=== PATIENT | female | born 1950 | race Caucasian/White ===

== ENCOUNTER → 2018-01-09 | Outpatient (CLI) | payer MEDICARE ==
[~2018-01-09] MED LIST: AMLODIPINE BESYL5 MG PO; CENTRUM SILVER1 EAC3 PO; FIBER PO; FIBER TABS625 MG PO; FISH OIL PO; LOSARTAN-HCTZ1 EACH; MILK THISTLE500 MG PO; OMEPRAZOLE20 MG PO; TRIBENZOR 20-51 EACH PO; Z.3.CENTRUM SILVER1 PO; [UNRECOGNIZED DRUG - OTHER] PO; [UNRECOGNIZED DRUG - OTHER] PO
--- NOTE | 2018-01-16 08:35 | Diagnostic Imaging Report ---
#[id number] - MGSCRBIL #BILATERAL DIGITAL SCREENING MAMMOGRAM WITH CAD: 01/09/2018 CLINICAL: Routine screening. Comparison is made to exams dated: 12/31/2014 mammogram and 01/07/2014 mammogram - [facility]. Current study contains 4 films. There are scattered fibroglandular elements in both breasts. Current study was also evaluated with a Computer Aided Detection (CAD) system. There is a benign calcification in the right breast. There is a mole marker on the left breast. No significant masses, calcifications, or other findings are seen in either breast. There has been no significant interval change. IMPRESSION: BENIGN There is no mammographic evidence of malignancy. A 1 year screening mammogram is recommended. The patient will be notified by letter of the results. Julien boyle/marline:01/13/2018 12:14:09 [employer] Administrator: Marybeth TORRES)([place]), [facility] letter sent: Compared to Prior B9 Mammogram BI-RADS: 2 Benign
== END ==
LOC: MAMMO 12:59
PROVIDERS: ATTEND Family Medicine
DX: Z12.31 Encounter for screening mammogram for malignant neoplasm of breast (principal)
CPT/HCPCS: 77067

== ENCOUNTER → 2018-01-13 | Outpatient (CLI) | payer MEDICARE ==
--- NOTE | 2018-01-13 10:04 | Diagnostic Imaging Report ---
PROCEDURE: BONE DXA DUAL ENERGY COMPARISON:None. INDICATIONS:OSTEOPORSIS FINDINGS:Evaluation of the left hip and lumbar spine was performed utilizing DEXA Hologic bone densitometer. The study is technically adequate. The patient does not have any known previous non-traumatic fractures or other risk factors. Left hip total bone mineral density: 0.808 gm/cm2, T-score is -1.1, Z-score is 0.30. Lumbar spine total bone mineral density: 0.847 gm/cm2, T-score is -1.8, Z-score is a 0.1. Impression: 1. Decreased bone mineral density of the left hip classified as osteopenia, fracture risk is increased. 2. Decreased bone mineral density of the lumbar spine classified as osteopenia, fracture risk is increased. 3. Ten-year fracture risk of the major osteoporotic fracture is 8.7%. 4. Ten-year fracture risk of a hip fracture is 0.8%. 5. Since the previous study dated 12/31/2014 there is a decrease in the bone mineral density of -0.7%. The patient's fracture risk is compared to an age-matched control. Medical evaluation for secondary causes of low bone mineral density may be appropriate. Correlate clinically for the necessity and timing of the next bone mineral density study. National Osteoporosis Foundation recommendations: Initial therapy to reduce fracture risk in postmenopausal women with -BMD t-scores below -2.0 by central DXA with no risk factors -BMD t-scores below -1.5 by central CXA with one or more risk factors (first deg relative with hip fracture, prior personal fracture, low body weight, smoking) -A prior vertebral or hip fracture AACE n(Clinical Endocrinology) recommends treating the following: Postmenopausal women who have osteoporosis as diagnosed by fragility fractures or t-score -2.5 or below. Postmenopausal women who have risk factors (including hx of hip fracture, low body weight, smoking, risk of falling, high bone turnover, advancing age) and borderline low BMD T-scores of -1.5 or below Adequate intake of calcium (at least 1200mg/day) and vitamin D (400-800IU/day). Regular weight bearing and muscle-strengthening exercises Avoid smoking and excessive alcohol Julien Bailey D.O. Dictated by: Julien Bailey D.O. on 01/13/2018 at 10:13 Electronically approved by: Julien Bailey D.O. on 01/13/2018 at 10:13
== END ==
LOC: DX 08:58
PROVIDERS: ATTEND Family Medicine
DX: M81.0 Age-related osteoporosis without current pathological fracture (principal)
CPT/HCPCS: 77080

== ENCOUNTER → 2018-01-24 | Day surgery (SDC) | payer MEDICARE ==
[2018-01-23 12:31] LABS: BASOPHILS % 0.6 % (0.0-1.0); EOSINOPHILS # (AUTO) 0.1 (0.0-0.4); EOSINOPHILS % 1.4 % (0.0-6.0); HEMATOCRIT 41.8 % (34.2-44.1); HEMOGLOBIN 13.9 g/dL (12.0-16.0); LYMPHOCYTES # (AUTO) 1.9 (1.0-3.2); LYMPHOCYTES % 27.5 % (18.0-39.1); MEAN CORPUSCULAR HEMOGLOBIN 33.7 pg (28-32); MEAN CORPUSCULAR HGB CONC 33.3 g/dL (31-35); MEAN CORPUSCULAR VOLUME 101.2 fL (81-99); MONOCYTES # (AUTO) 0.7 (0.2-0.8); MONOCYTES % 10.4 % (4.4-11.3); NEUTROPHILS # (AUTO) 4.2 (2.1-6.9); PLATELET COUNT 278 x10e3/uL (140-360); RED BLOOD COUNT 4.13 x10e6/uL (3.6-5.1); RED CELL DISTRIBUTION WIDTH 12.6 % (11.7-14.4)
[2018-01-23 12:41] LABS: INR 0.85; PROTHROMBIN TIME 12.4 seconds (11.9-14.5)
[2018-01-23 12:42] LABS: PARTIAL THROMBOPLASTIN TIME 31.7 seconds (23.8-35.5)
[2018-01-23 12:55] LABS: ALANINE AMINOTRANSFERASE 18 IU/L (0-55); ALBUMIN 4.3 g/dL (3.5-5.0); ALBUMIN/GLOBULIN RATIO 1.2 (0.8-2.0); ALKALINE PHOSPHATASE 91 IU/L (40-150); ANION GAP 13.8 mmol/L (8-16); BLOOD UREA NITROGEN 12 mg/dL (7-26); BUN/CREATININE RATIO 15 (6-25); CALCIUM 10.3 mg/dL (8.4-10.2); CARBON DIOXIDE 28 mmol/L (22-29); CHLORIDE 96 mmol/L (98-107); CREATININE, SERUM 0.78 mg/dL (0.57-1.11); EST GLOMERULAR FILTRATION RATE > 60 ML/MIN (60-); GLUCOSE 101 mg/dL (74-118); POTASSIUM 3.8 mmol/L (3.5-5.1); SODIUM 134 mmol/L (136-145)
[~2018-01-24] MED LIST changes: +FENTANYL CITRATE/PF 100MCG/2 ML INJ ONE; +LIDOCAINE HCL 2% LOCAL INJ 5 ML SDV VIAL INJ ONE; +MIDAZOLAM HCL 2 MG/2 ML VIAL ONE; +PROPOFOL IV EMULSION 10 MG/ML 50 ML VIAL ONE
--- OUTSIDE RECORDS SUMMARY | 2018-01-24 11:10 | XMS REPORT ---
Author Author [facility] Address Unknown Phone Unavailable Care Team Providers Care B2B Account Executive Name Role Phone RAFAEL FERRIS Unavailable Unavailable BRIDGER FERRIS Unavailable Unavailable Problems This patient has no known problems. Allergies, Adverse Reactions, Alerts This patient has no known allergies or adverse reactions. Medications This patient has no known medications. Results Test Description Test Time Test Comments Text Results Atomic Results Result Comments BONE DXA DUAL ENERGY 2018-01-13 10:13:00 [place] [address] Patient Name: OSMIN HAWKINS MR #: [id number] : 1950 Age/Sex: 67/F Req #: [id number] Adm Physician: Ordered by: RAFAEL FERRIS DO Report #: [id number] Location: DX Room/Bed: Procedure: [id number] DX/BONE DXA DUAL ENERGY Exam Date: Exam Time: REPORT STATUS: Signed PROCEDURE: BONE DXA DUAL ENERGY COMPARISON: None. INDICATIONS: OSTEOPORSIS FINDINGS: Evaluation of the left hip and lumbar spine was performed utilizing DEXA Hologic bone densitometer. The study is technically adequate. The patient does not have any known previous non-traumatic fractures or other risk factors. Left hip total bone mineral density: 0.808 gm/cm2, T-score is -1.1, Z-score is 0.30. Lumbar spine total bone mineral density: 0.847 gm/cm2, T-score is -1.8, Z- score is a 0.1. Impression: 1. Decreased bone mineral density of the left hip classified as osteopenia, fracture risk is increased. 2. Decreased bone mineral density of the lumbar spine classified as osteopenia, fracture risk is increased. 3. Ten-year fracture risk of the major osteoporotic fracture is 8.7%. 4. Ten-year fracture risk of a hip fracture is 0.8%. 5. Since the previous study dated 12/31/2014 there is a decrease in the bone mineral density of -0.7%. The patient's fracture risk is compared to an age-matched control. Medical evaluation for secondary causes of low bone mineral density may be appropriate. Correlate clinically for the necessity and timing of the next bone mineral density study. National Osteoporosis Foundation recommendations: Initial therapy to reduce fracture risk in postmenopausal women with -BMD t-scores below -2.0 by central DXA with no risk factors -BMD t-scores below -1.5 by central CXA with one or more risk factors (first deg relative with hip fracture, prior personal fracture, low body weight, smoking) -A prior vertebral or hip fracture AACE n(Clinical Endocrinology) recommends treating the following: Postmenopausal women who have osteoporosis as diagnosed by fragility fractures or t-score -2.5 or below. Postmenopausal women who have risk factors (including hx of hip fracture, low body weight, smoking, risk of falling, high bone turnover, advancing age) and borderline low BMD T- scores of -1.5 or below Adequate intake of calcium (at least 1200mg/day) and vitamin D (400-800IU/day). Regular weight bearing and muscle- strengthening exercises Avoid smoking and excessive alcohol Ade Bailey D.O. Dictated by: Ade Bailey D.O. on 01/13/2018 at 10:13 Electronically approved by: Ade Bailey D.O. on 01/13/2018 at 10:13 Dictated By: ADE BAILEY DO 1013 Transcribed By: JONAS on 01/13/18 1013 COPY TO: RAFAEL FERRIS DO MAMMOGRAPHY DIGITAL SCR BILAT 2018-01-09 13:52:00 [facility] [address] [address] Patient Name: OSMIN HAWKINS MR #: [id number] : 1950 Age/Sex: 67/F Req #: [id number] Adm Physician: Ordered by: FERRIS ANDREW DO Report #: [id number] Location: MAMMO Room/Bed: Procedure: [id number] MG/MAMMOGRAPHY DIGITAL SCR BILAT Exam Date: 01/09/18 Exam Time: 1300 REPORT STATUS: Signed #[id number] - MGSCRBIL #BILATERAL DIGITAL SCREENING MAMMOGRAM WITH CAD: 01/09/2018 CLINICAL: Routine screening. Comparison is made to exams dated: 12/31/2014 mammogram and 01/07/2014 mammogram - [facility]. Current study contains 4 films. There are scattered fibroglandular elements in both breasts. Current study was also evaluated with a Computer Aided Detection (CAD) system. There is a benign calcification in the right breast. There is a mole marker on the left breast. No significant masses, calcifications, or other findings are seen in either breast. There has been no significant interval change. IMPRESSION: BENIGN There is no mammographic evidence of malignancy. A 1 year screening mammogram is recommended. The patient will be notified by letter of the results. Ade boyle/jas:01/13/2018 12:14:09 Rn Post Partum: Marybeth TORRES)(M), [facility] letter sent: Compared to Prior B9 Mammogram BI- RADS: 2 Benign Dictated By: ADE BAILEY DO 1214 Transcribed By: JAS on 01/13/18 1214 COPY TO: BRIDGER FERRIS DO
--- OUTSIDE RECORDS SUMMARY | 2018-01-24 11:10 | XMS REPORT ---
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, UNSPECIFIED Active Lauren Vera DRUM DRIER Unspecified adjustment reaction Medication List Medication Instructions Start Date Stop Date Generic Name NDC Status Provider Patient Instruction Drug Treatment Unknown - unknown Procedures Code Procedure Name Date Entry Date Standard Description CPT-75789 Psychotherapy 30 (16-37*) min - 36349 (with patient and/or family member) 23:12:49 MEDICAL PRACTICE ASSISTANT CPT-56808 Psychotherapy 45 (38-52*) min - 09810 (with patient and/or family member) 14:54:22 CDT CPT-21368 Psychotherapy 45 (38-52*) min - 13606 (with patient and/or family member) 07:16:20 CDT CPT-21939 Psychotherapy 45 (38-52*) min - 98388 (with patient and/or family member) 09:33:12 CDT CPT-91623 Psychotherapy 45 (38-52*) min - 22542 (with patient and/or family member) 12:16:50 CDT CPT-76162 Psychotherapy 45 (38-52*) min - 19991 (with patient and/or family member) 21:11:43 CDT CPT-77095 Psychotherapy 45 (38-52*) min - 14412 (with patient and/or family member) 16:48:36 CDT CPT-09664 Psychotherapy 45 (38-52*) min - 13511 (with patient and/or family member) 18:56:14 CDT CPT-12098 Psychotherapy 45 (38-52*) min - 97233 (with patient and/or family member) 07:36:49 MEDICAL PRACTICE ASSISTANT CPT-05223 Psychotherapy 30 (16-37*) min - 24244 (with patient and/or family member) 21:55:18 MEDICAL PRACTICE ASSISTANT CPT-73127 Psychotherapy 45 (38-52*) min - 41650 (with patient and/or family member) 10:51:24 MEDICAL PRACTICE ASSISTANT CPT-22646 Psychotherapy 45 (38-52*) min - 81874 (with patient and/or family member) 15:38:44 MEDICAL PRACTICE ASSISTANT CPT-21305 Psychotherapy 45 (38-52*) min - 64048 (with patient and/or family member) 11:48:37 MEDICAL PRACTICE ASSISTANT CPT-14285 Psychotherapy 45 (38-52*) min - 65200 (with patient and/or family member) 16:08:05 MEDICAL PRACTICE ASSISTANT CPT-15875 Psychotherapy 30 (16-37*) min - 14312 (with patient and/or family member) 10:37:31 CDT CPT-46416 Psychotherapy 45 (38-52*) min - 26787 (with patient and/or family member) 08:56:14 CDT CPT-75251 Psychotherapy 45 (38-52*) min - 98432 (with patient and/or family member) 07:29:30 CDT CPT-95857 Diagnostic evaluation (no medical) - 85186 08:25:25 CDT
[2018-01-24 14:15] VITALS: BP 112/75
--- NOTE | 2018-01-24 15:26 | Operative Report ---
DATE OF PROCEDURE: January 24, 2018 REFERRING PHYSICIAN: Dr. Bridger Ferris PROCEDURES PERFORMED 1. Esophagogastroduodenoscopy with biopsies. 2. Colonoscopy with polypectomy. INDICATIONS FOR EGD: Acid reflux. INDICATIONS FOR COLONOSCOPY: Surveillance colonoscopy. Personal history of colon polyps. MEDICATION: Patient was done under MAC. Please see anesthesiologist's note. PROCEDURE: With the patient in the left lateral decubitus position, the flexible fiberoptic Olympus gastroscope was introduced into the esophagus under direct visualization without any difficulty. There were some grade-1 esophageal varices noted in the esophagus. Some patchy erythema was noted in the distal esophagus. The scope was then advanced with ease into the stomach traversing a small sliding hiatal hernia. Mucosa overlying the antrum revealed some patchy intense erythema and low-grade to moderate edema, and biopsies were obtained and sent to stain for H. pylori. The mucosa overlying the body revealed some diffuse nodularity, and biopsies were obtained. Hyperplastic-appearing polyps were noted in the body of the stomach and were partially excised with cold biopsy forceps. The pylorus was of normal contour and shape. It was intubated with ease, and the scope was advanced all the way to the 2nd portion of the duodenum. The scope was then withdrawn slowly. Mucosa overlying the proximal 2nd portion and the duodenal bulb appeared to be within normal limits. The scope was then withdrawn back into the stomach and retroflexed. The mucosa overlying the fundus also revealed some nodularity, but there were no fundal varices, and the cardia appeared to be within normal limits. The previously described hiatal hernia was also noted in the retroflexed position. The scope was then straightened out. It was subsequently withdrawn. Patient tolerated the procedure well. IMPRESSION 1. Grade-1 esophageal varices. 2. Distal esophagitis, mild. 3. Small sliding hiatal hernia. 4. Gastritis, biopsied. Biopsies sent to stain for H. pylori. 5. Gastric polyps, body, partially excised with cold biopsy forceps. 6. Gastric mucosa, body, excessively nodular, biopsied. PLAN: Follow up histology. Continue omeprazole 40 mg 1 p.o. q.a.m. a.c. The patient was then turned around. After adequate lubrication of the anal canal, a flexible fiberoptic Olympus colonoscope was inserted into the rectum with ease and advanced all the way to the cecum. It was then withdrawn slowly. Mucosa overlying the cecum appeared to be within normal limits. Three minute polyps were hot biopsied from the ascending colon. The transverse and descending appeared to be within normal limits. One polyp was hot biopsied from the sigmoid colon. The rectum appeared to be within normal limits. The scope was then retroflexed into the distal rectum, and small internal hemorrhoids were noted, none of which was actively bleeding. The scope was then straightened out. It was subsequently withdrawn. Patient tolerated the procedure well. IMPRESSION 1. Ascending colon polyps times 3, hot biopsied. 2. Sigmoid colon polyp times 1, hot biopsied. 3. Internal hemorrhoids, none actively bleeding. PLAN: Follow up histology. Initiate high-fiber, low-fat diet. Initiate high-fiber supplement. Patient might benefit from a followup colonoscopy in 3 years. Job#: [id number] cc:BRIDGER FERRIS DO
== END | disposition home or self-care (01) ==
LOC: OR 11:05
PROVIDERS: ATTEND Internal Medicine Gastroenterology
DX: Z12.11 Encounter for screening for malignant neoplasm of colon (principal); D12.2 Benign neoplasm of ascending colon; D12.5 Benign neoplasm of sigmoid colon; K31.7 Polyp of stomach and duodenum; K29.70 Gastritis, unspecified, without bleeding; I85.00 Esophageal varices without bleeding; K20.8 Other esophagitis; K21.9 Gastro-esophageal reflux disease without esophagitis; K44.9 Diaphragmatic hernia without obstruction or gangrene; K59.00 Constipation, unspecified; K31.89 Other diseases of stomach and duodenum; K64.8 Other hemorrhoids; B19.20 Unspecified viral hepatitis C without hepatic coma; G47.33 Obstructive sleep apnea (adult) (pediatric); I10 Essential (primary) hypertension; Z88.6 Allergy status to analgesic agent; Z01.810 Encounter for preprocedural cardiovascular examination; Z01.812 Encounter for preprocedural laboratory examination; Z68.31 Body mass index [BMI] 31.0-31.9, adult
CPT/HCPCS: 36415; 43239; 45384; 80053; 85025; 85610; 85730; 93005; J2001; J2250; 45378

== ENCOUNTER → 2020-05-27 | Outpatient (CLI) | payer MEDICARE ==
[~2020-05-27] MED LIST changes: -FENTANYL CITRATE/PF 100MCG/2 ML INJ ONE; -LIDOCAINE HCL 2% LOCAL INJ 5 ML SDV VIAL INJ ONE; -MIDAZOLAM HCL 2 MG/2 ML VIAL ONE; -PROPOFOL IV EMULSION 10 MG/ML 50 ML VIAL ONE
== END ==
LOC: MRI 09:25
PROVIDERS: ATTEND Internal Medicine Cardiovascular Disease
DX: H53.2 Diplopia (principal)
CPT/HCPCS: 70551

== ENCOUNTER → 2020-09-29 | Outpatient (CLI) | payer MEDICARE | LOC: MAMMO 11:49 | PROVIDERS: ATTEND Family Medicine | DX: Z12.31 Encounter for screening mammogram for malignant neoplasm of breast (principal) | CPT/HCPCS: 77067 ==

== ENCOUNTER → 2020-10-29 | Outpatient (CLI) | payer MEDICARE | LOC: DX 08:26 | PROVIDERS: ATTEND Family Medicine | DX: Z13.820 Encounter for screening for osteoporosis (principal) | CPT/HCPCS: 77080 ==

== ENCOUNTER → 2021-12-22 | Day surgery (SDC) | payer MEDICARE ==
[2021-12-21 10:08] LABS: BASOPHILS % 0.7 % (0.0-1.0); EOSINOPHILS # (AUTO) 0.2 (0.0-0.4); EOSINOPHILS % 3.8 % (0.0-6.0); HEMOGLOBIN 13.6 g/dL (12.0-16.0); LYMPHOCYTES # (AUTO) 1.9 (1.0-3.2); LYMPHOCYTES % 31.1 % (18.0-39.1); MEAN CORPUSCULAR HEMOGLOBIN 34.2 pg (28-32); MEAN CORPUSCULAR HGB CONC 33.2 g/dL (31-35); MONOCYTES # (AUTO) 0.6 (0.2-0.8); MONOCYTES % 9.6 % (4.4-11.3); NEUTROPHILS # (AUTO) 3.3 (2.1-6.9); NEUTROPHILS % 54.6 % (38.7-80.0); PLATELET COUNT 260 x10e3/uL (140-360); RED BLOOD COUNT 3.98 x10e6/uL (3.6-5.1); RED CELL DISTRIBUTION WIDTH 11.8 % (11.7-14.4)
[~2021-12-22] MED LIST changes: +ASPIRIN81 MG PO; +CALTRATE 600 +1 EAC1 PO; +FENTANYL CITRATE/PF 100MCG/2 ML INJ ONE; +LOSARTAN-HCTZ1 EAC2 PO; +MIDAZOLAM HCL 2 MG/2 ML VIAL ONE; +PROPOFOL IV EMULSION 10 MG/ML 20 ML VIAL ONE; +PROPOFOL IV EMULSION 10 MG/ML 50 ML VIAL IV ONE; +VITAMIN C1000 MG PO
[2021-12-22 13:15] VITALS: BP 126/70
== END | disposition home or self-care (01) ==
LOC: OR 08:52
PROVIDERS: ATTEND Internal Medicine Gastroenterology
DX: K21.9 Gastro-esophageal reflux disease without esophagitis (principal); K31.89 Other diseases of stomach and duodenum; B37.81 Candidal esophagitis; K44.9 Diaphragmatic hernia without obstruction or gangrene; K29.70 Gastritis, unspecified, without bleeding; K64.8 Other hemorrhoids; Z86.19 Personal history of other infectious and parasitic diseases; I10 Essential (primary) hypertension; Z79.899 Other long term (current) drug therapy; Z01.812 Encounter for preprocedural laboratory examination; Z88.5 Allergy status to narcotic agent; K29.80 Duodenitis without bleeding
CPT/HCPCS: 36415; 43239; 45378; 85025; 93005; J2250; J2704 ×2; J3010; 43235

== ENCOUNTER → 2022-01-18 | Outpatient (CLI) | payer MEDICARE ==
[~2022-01-18] MED LIST changes: -FENTANYL CITRATE/PF 100MCG/2 ML INJ ONE; -MIDAZOLAM HCL 2 MG/2 ML VIAL ONE; -PROPOFOL IV EMULSION 10 MG/ML 20 ML VIAL ONE; -PROPOFOL IV EMULSION 10 MG/ML 50 ML VIAL IV ONE
== END ==
LOC: MAMMO 08:41
PROVIDERS: ATTEND Family Medicine
DX: Z12.31 Encounter for screening mammogram for malignant neoplasm of breast (principal)
CPT/HCPCS: 77067

== ENCOUNTER → 2022-04-26 | Outpatient (CLI) | payer MEDICARE ==
[2022-04-09 08:19] LABS: CREATININE, SERUM 0.77 mg/dL (0.57-1.11)
[~2022-04-26] MED LIST changes: +GADOBENATE DIMEGLUMINE 0 ML IV ONE; +GADOBENATE DIMEGLUMINE 1 ML IV ONE
== END ==
LOC: MRI 04-09 07:27
PROVIDERS: ATTEND Orthopaedic Surgery
DX: M67.431 Ganglion, right wrist (principal)
CPT/HCPCS: 36415; 82565; 84520

== ENCOUNTER → 2022-06-02 | Day surgery (SDC) | payer MEDICARE ==
[2022-05-24 11:59] LABS: BASOPHILS % 0.5 % (0.0-1.0); EOSINOPHILS # (AUTO) 0.1 (0.0-0.4); HEMATOCRIT 40.3 % (34.2-44.1); HEMOGLOBIN 13.7 g/dL (12.0-16.0); LYMPHOCYTES # (AUTO) 1.7 (1.0-3.2); LYMPHOCYTES % 19.4 % (18.0-39.1); MEAN CORPUSCULAR HEMOGLOBIN 34.6 pg (28-32); MEAN CORPUSCULAR VOLUME 101.8 fL (81-99); MONOCYTES # (AUTO) 0.9 (0.2-0.8); MONOCYTES % 10.4 % (4.4-11.3); NEUTROPHILS # (AUTO) 5.9 (2.1-6.9); NEUTROPHILS % 68.2 % (38.7-80.0); PLATELET COUNT 313 x10e3/uL (140-360); RED BLOOD COUNT 3.96 x10e6/uL (3.6-5.1); RED CELL DISTRIBUTION WIDTH 11.5 % (11.7-14.4)
[2022-05-24 13:33] LABS: ANION GAP 16.2 mmol/L (8-16); CALCIUM 9.6 mg/dL (8.4-10.2); CREATININE, SERUM 0.69 mg/dL (0.57-1.11); POTASSIUM 4.2 mmol/L (3.5-5.1)
[~2022-06-02] MED LIST changes: +BUPIVACAINE 0.25% 30ML SDV ONE; +CEFAZOLIN SODIUM 2 GM ONE; +DEXAMETHASONE SOD PHOS INJ 4 MG/ML SDV ONE; +EPHEDRINE SULFATE INJ 50 MG/ML VIAL ONE; +FENTANYL CITRATE/PF 100MCG/2 ML INJ ONE; -GADOBENATE DIMEGLUMINE 0 ML IV ONE; -GADOBENATE DIMEGLUMINE 1 ML IV ONE; +GLYCOPYRROLATE INJ 0.2 MG/ML VIAL ONE; +LACTATED RINGER'S 1,000 ML ONE; +LIDOCAINE HCL 1% LOCAL INJ 20 ML VIAL ONE; +LIDOCAINE HCL 2% LOCAL INJ 5 ML SDV VIAL INJ ONE; +ONDANSETRON HCL INJ 2MG/ML 2ML 2 MG/ML VIAL ONE; +POVIDONE IODINE 0.05% 0.05 % ML PO ONE; +PROPOFOL IV EMULSION 10 MG/ML 20 ML VIAL ONE; +SEVOFLURANE INHAL SOLN 250 ML PEN BTL ONE
[2022-06-02 11:05] VITALS: BP 152/78
== END | disposition home or self-care (01) ==
LOC: OR 06:57
PROVIDERS: ATTEND Orthopaedic Surgery
DX: M67.431 Ganglion, right wrist (principal); Z01.810 Encounter for preprocedural cardiovascular examination; Z01.812 Encounter for preprocedural laboratory examination; Z01.818 Encounter for other preprocedural examination; Z79.82 Long term (current) use of aspirin; Z79.899 Other long term (current) drug therapy
CPT/HCPCS: 25111; 36415; 71046; 80048; 85025; 88304; 93005; J1100; J2001; J2405; J2704; J3010; J7121